=== PATIENT | male | born 1990 | race Caucasian/White ===

== ENCOUNTER 2018-12-15 14:34 | Inpatient (IN) | payer OTHER ==
[2018-12-15 17:23] VITALS: BMI 25.9
--- NOTE | 2018-12-15 18:00 | HP ---
COWS - Scale Resting Pulse: 1= [place] 81-100 Sweatin= Chills/Flushing Restless Observation: 3= Extraneous Movement Pupil Size: 0= Normal to Room Light Bone or Joint Aches: 2= Severe Diffuse Aches Runny Nose/ Eye Tearin= Nasal Congestion GI Upset > 30mins: 1= Stomach Cramp Tremor Observation: 1= Tremor [place], Not Seen Yawning Observation: 1= 1-2x During Session Anxiety or Irritability: 1=Feels Anxious/Irritable Goose Flesh Skin: 3=Piloerection COWS Score: 15 CIWA Score Nausea/Vomitin Muscle Tremors: 3 Anxiety: 2 Agitation: 2 Paroxysmal Sweats: 1-Minimal Palms Moist Orientation: 0-Oriented Tacttile Disturbances: 0-None Auditory Disturbances: 0-None Visual Disturbances: 0-None Headache: 2-Mild CIWA-Ar Total Score: 12 - Admission Criteria OASAS Guidelines: Admission for Medically Managed Detox: Requires at least one of the followin. CIWA greater than 12 2. Seizures within the past 24 hours 3. Delirium tremens within the past 24 hours 4. Hallucinations within the past 24 hours 5. Acute intervention needed for co occurring medical disorder 6. Acute intervention needed for co occurring psychiatric disorder 7. Severe withdrawal that cannot be handled at a lower level of care (continued vomiting, continued diarrhea, abnormal vital signs) requiring intravenous medication and/or fluids 8. Patient presents the following: CIWA greater than 12 Admission Criteria Met: Admission criteria met Admission ROS [facility] Chief Complaint: heroin and xanax detox 27 yo with no med problems. Says been using heroin for the last 6 years- IV. Introduced by coworkers to heroin. First time in detox, pt was in a methadone program, but missed several days and was placed on probation. Pt missed last 4 days of dosing. heroin- 1 bundle/day, in addition to occ methadone dose of 60mg/day, last use this morning xanax- 2 mg/day Utox- mop, fent, MTD, THC, leti- uses crack Allergies/Adverse Reactions: Allergies Allergy/AdvReac Type Severity Reaction Status Date / Time No Known Allergies Allergy Verified 12/15/18 17:10 - Ebola screening Have you traveled outside of the country in the last 21 days: No (N) Have you had contact with anyone from an Ebola affected area: No Do you have a fever: No Patient History - PPD History Documented Results: Negative w/o proof - Smoking Cessation Smoking history: Current every day smoker Have you smoked in the past 12 months: Yes Aproximately how many cigarettes per day: 20 Hx Chewing Tobacco Use: No Initiated information on smoking cessation: Yes 'Breaking Loose' booklet given: 12/15/18 - Substance & Tx. History Hx Substance Use: Yes Substance Use Type: None, Heroin, Opiates, Prescribed, Tranquilizers Hx Substance Use Treatment: Yes - Substances abused Heroin Substance route: Injection Frequency: Daily Amount used: 1 bundle Age of first use: 19 Date of last use: 12/15/18 Alprazolam (Xanax) Substance route: Oral Frequency: Daily Amount used: 1 of 2 mg Age of first use: 21 Date of last use: 12/14/18 Alcohol Substance route: Oral Frequency: 3-6 times per week Amount used: fifth of a bottle Age of first use: 17 Date of last use: 12/11/18 Benzodiazepine (Klonopin) Substance route: Oral Frequency: 3-6 times per week Amount used: 2 of 2 mg Age of first use: 21 Date of last use: 12/09/18 Crack Substance route: Smoking Frequency: Daily Amount used: 3 bags Age of first use: 21 Date of last use: 12/14/18 Other Other (specify): Fentanyl Substance route: Injection Frequency: Daily Amount used: 1 bundle Age of first use: 24 Date of last use: 12/15/18 Family Disease History - Family Disease History Family Disease History: Diabetes: Grandparent Admission Physical Exam [facility] - Vital Signs Vital Signs: Vital Signs - 24 hr 12/15/18 17:11 Temperature 97.0 F L Pulse Rate 66 Respiratory 16 Rate Blood Pressure 115/72 - Physical General Appearance: Yes: Within Normal Limits HEENTM: Yes: Within Normal Limits, EOMI Respiratory: Yes: Within Normal Limits, Lungs Clear Neck: Yes: Within Normal Limits, Supple Cardiology: Yes: Within Normal Limits, Regular Rhythm, S1, S2 Abdominal: Yes: Within Normal Limits, Normal Bowel Sounds Back: Yes: Within Normal Limits Musculoskeletal: Yes: Within Normal Limits Extremities: Yes: Within Normal Limits Neurological: Yes: Within Normal Limits Integumentary: Yes: Track Ramirez, Other (tattoos multiple) - Diagnostic (1) Opioid use disorder Current Visit: Yes Status: Acute (2) Methadone maintenance therapy patient Current Visit: Yes Status: Acute (3) Benzedrine use disorder, mild Current Visit: Yes Status: Acute (4) Cocaine use disorder Current Visit: Yes Status: Acute Breathalyzer - Breathalyzer Breathalyzer: 0 Urine Drug Screen - Test Device Lot number: [id number] Expiration date: 12/05/19 - Control Is test valid?: Yes - Results Drug screen NEGATIVE: No Urine drug screen results: THC-Marijuana, LETI-Cocaine, FEN-Fentanyl, MOP-Opiates , MTD-Methadone Inpatient Rehab Admission - Rehab Decision to Admit Inpatient rehab admission?: No
[2018-12-15] MEDS ORDERED: METHOCARBAMOL 500 MG TABLET PO PRN (18:06)
[2018-12-15] MEDS ORDERED: MAG HYDROX/AL HYDROX/SIMETH 30 ML UNIT-DOSE CUP PO PRN (18:06)
[2018-12-15] MEDS ORDERED: MAGNESIUM HYDROX 2400MG/30ML ORAL SUSPENSION 30 ML CUP PO PRN (18:06)
[2018-12-15] MEDS ORDERED: BISMUTH SUBSALICYLATE 524 MG/30 ML UD PO PRN (18:06)
[2018-12-15] MEDS ORDERED: MENTHOL/PHENOL 1 EACH UD MM PRN (18:06)
[2018-12-15] MEDS ORDERED: ONDANSETRON *ODT* 4 MG TABLET SL PRN (18:06)
[2018-12-15] MEDS ORDERED: ACETAMINOPHEN 325 MG TABLET (FP) PO PRN ×2 (18:06)
[2018-12-15] MEDS ORDERED: IBUPROFEN 400 MG TABLET (FP) PO PRN (18:06)
[2018-12-15] MEDS ORDERED: MAGNESIUM CITRATE 300 ML BOTTLE PO PRN (18:06)
[2018-12-15] MEDS ORDERED: cloNIDine HCL 0.1 MG TABLET PO PRN (18:08)
[2018-12-15] MEDS: diazePAM 5 MG TABLET PO PRN (19:06)
[2018-12-15] MEDS: NICOTINE POLACRILEX 2 MG GUM BUC PRN (19:48)
[2018-12-15] MEDS: diazePAM 5 MG TABLET PO SCH (22:11)
[2018-12-15] MEDS: THIAMINE HCL 100 MG TABLET (FP) PO SCH (22:11)
[2018-12-15] MEDS ORDERED: METHADONE HCL 10 MG TABLET (FOR DETOX USE ONLY) PO ONE (23:00)
[2018-12-15] MEDS: MELATONIN 5 MG TABLETS PO PRN (23:33)
[2018-12-15] MEDS: hydrOXYzine PAMOATE 25 MG CAPSULE (FP) PO PRN (23:33)
[2018-12-15 23:36] LABS: PH,URINE 5.5 (5.0-8.0); URINE APPEARANCE TURBID; URINE BILIRUBIN NEGATIVE (NEGATIVE); URINE COLOR DK YELLOW; URINE GLUCOSE (UA) NEGATIVE (NEGATIVE); URINE KETONE NEGATIVE (NEGATIVE); URINE LEUK ESTERASE NEGATIVE (NEGATIVE); URINE NITRITE NEGATIVE (NEGATIVE); URINE PROTEIN NEGATIVE (NEGATIVE); URINE UROBILINOGEN 0.2 mg/dL (0.2-1.0)
[2018-12-16] MEDS: diazePAM 5 MG TABLET PO SCH ×3 (06:54→22:19)
[2018-12-16] MEDS ORDERED: NICOTINE 14 MG/24 HOURS TOPICAL PATCH TD SCH (10:00)
[2018-12-16] MEDS ORDERED: METHADONE HCL 10 MG TABLET PO ONE (10:00)
[2018-12-16] MEDS ORDERED: METHADONE HCL 10 MG TABLET (FOR DETOX USE ONLY) PO SCH (10:00)
[2018-12-16 10:19] LABS: HEMATOCRIT 41.8 % (35.4-49); HEMOGLOBIN 13.8 GM/dL (11.7-16.9); MCH 26.2 pg (25.7-33.7); MCHC 33.1 g/dl (32.0-35.9); MEAN CELL VOLUME 79.2 fl (80-96); MEAN PLT VOLUME 10.3 fl (7.5-11.1); PLATELET COUNT 201 K/MM3 (134-434); RBC 5.27 M/mm3 (4.00-5.60); WHITE BLOOD COUNT 5.1 K/mm3 (4.0-10.0)
[2018-12-16 10:20] LABS: ALBUMIN 2.9 g/dl (3.4-5.0); ALK PHOS 112 U/L (45-117); ANION GAP 5 MMOL/L (8-16); BILIRUBIN,TOTAL 0.3 mg/dL (0.2-1); BLOOD UREA NITROGEN 9 mg/dL (7-18); CALCIUM 8.3 mg/dL (8.5-10.1); CHLORIDE 107 mmol/L (98-107); CO2 27 mmol/L (21-32); CREATININE 0.7 mg/dL (0.55-1.3); GLUCOSE,RANDOM 103 mg/dL (74-106); POTASSIUM 3.8 mmol/L (3.5-5.1); SGOT/AST 39 U/L (15-37); SGPT/ALT 79 U/L (13-61); SODIUM 139 mmol/L (136-145); TOT PROT 5.9 g/dl (6.4-8.2)
[2018-12-16] MEDS: PRENATAL VITAMINS W/ FOLIC ACID TABLET (FP) PO SCH (10:39)
[2018-12-16] MEDS: diazePAM 5 MG TABLET PO PRN (10:40)
--- NOTE | 2018-12-16 12:07 | PN ---
[facility] CIWA - CIWA Score Nausea/Vomitin-Mild Nausea/No Vomiting Muscle Tremors: 1-None Visible, but Agency Anxiety: 3 Agitation: 2 Paroxysmal Sweats: No Perspiration Orientation: 1-Uncertain about Date Tacttile Disturbances: 0-None Auditory Disturbances: 0-None Visual Disturbances: 0-None Headache: 1-Very Mild CIWA-Ar Total Score: 9 S Progress Note (SOAP) Subjective: patient is at the methadone maintenance program, last dose 12/10/18, patient had methadone 20 mg yesterday, tolerate well, and patient may resume 30 mg methadone po daily Objective: 12/16/18 12:11 Vital Signs Temperature 97.6 F 12/16/18 09:43 Pulse Rate 65 12/16/18 09:43 Respiratory Rate 18 12/16/18 09:43 Blood Pressure 103/59 L 12/16/18 09:43 O2 Sat by Pulse Oximetry (%) Laboratory Last Values WBC 5.1 K/mm3 (4.0-10.0) 12/16/18 07:00 RBC 5.27 M/mm3 (4.00-5.60) 12/16/18 07:00 Hgb 13.8 GM/dL (11.7-16.9) 12/16/18 07:00 Hct 41.8 % (35.4-49) 12/16/18 07:00 MCV 79.2 fl (80-96) L 12/16/18 07:00 MCH 26.2 pg (25.7-33.7) 12/16/18 07:00 MCHC 33.1 g/dl (32.0-35.9) 12/16/18 07:00 RDW 15.0 % (11.9-15.9) 12/16/18 07:00 Plt Count 201 K/MM3 (134-434) 12/16/18 07:00 MPV 10.3 fl (7.5-11.1) 12/16/18 07:00 Sodium 139 mmol/L (136-145) 12/16/18 07:00 Potassium 3.8 mmol/L (3.5-5.1) 12/16/18 07:00 Chloride 107 mmol/L (98-107) 12/16/18 07:00 Carbon Dioxide 27 mmol/L (21-32) 12/16/18 07:00 Anion Gap 5 MMOL/L (8-16) L 12/16/18 07:00 BUN 9 mg/dL (7-18) 12/16/18 07:00 Creatinine 0.7 mg/dL (0.55-1.3) 12/16/18 07:00 Creat Clearance w eGFR 136.32 (>60) 12/16/18 07:00 Random Glucose 103 mg/dL (74-106) 12/16/18 07:00 Calcium 8.3 mg/dL (8.5-10.1) L 12/16/18 07:00 Total Bilirubin 0.3 mg/dL (0.2-1) 12/16/18 07:00 AST 39 U/L (15-37) H 12/16/18 07:00 ALT 79 U/L (13-61) H 12/16/18 07:00 Alkaline Phosphatase 112 U/L (45-117) 12/16/18 07:00 Total Protein 5.9 g/dl (6.4-8.2) L 12/16/18 07:00 Albumin 2.9 g/dl (3.4-5.0) L 12/16/18 07:00 Urine Color Dk yellow 12/15/18 23:20 Urine Appearance Turbid 12/15/18 23:20 Urine pH 5.5 (5.0-8.0) 12/15/18 23:20 Ur Specific [place] 1.036 (1.010-1.035) H 12/15/18 23:20 Urine Protein Negative (NEGATIVE) 12/15/18 23:20 Urine Glucose (UA) Negative (NEGATIVE) 12/15/18 23:20 Urine Ketones Negative (NEGATIVE) 12/15/18 23:20 Urine Blood Negative (NEGATIVE) 12/15/18 23:20 Urine Nitrite Negative (NEGATIVE) 12/15/18 23:20 Urine Bilirubin Negative (NEGATIVE) 12/15/18 23:20 Urine Urobilinogen 0.2 mg/dL (0.2-1.0) 12/15/18 23:20 Ur Leukocyte Esterase Negative (NEGATIVE) 12/15/18 23:20 RPR Titer Nonreactive (NONREACTIVE) 12/16/18 07:00 HIV 1&2 Antibody Screen Negative 12/16/18 07:00 HIV P24 Antigen Negative 12/16/18 07:00 lab noted Assessment: 12/16/18 12:11 withdrawal sx Plan: continue detox
[2018-12-16] MEDS ORDERED: NICOTINE 21 MG/24 HOURS TOPICAL PATCH TD SCH (14:36)
[2018-12-16] MEDS: NICOTINE POLACRILEX 2 MG GUM BUC PRN ×2 (14:36→22:26)
[2018-12-16] MEDS: MELATONIN 5 MG TABLETS PO PRN (22:19)
[2018-12-16] MEDS: THIAMINE HCL 100 MG TABLET (FP) PO SCH (22:19)
[2018-12-17] MEDS: diazePAM 5 MG TABLET PO PRN ×2 (05:52→15:58)
[2018-12-17] MEDS ORDERED: METHADONE HCL 10 MG TABLET PO SCH (06:00)
[2018-12-17] MEDS: hydrOXYzine PAMOATE 25 MG CAPSULE (FP) PO PRN ×2 (08:23→18:45)
[2018-12-17] MEDS ORDERED: diazePAM 5 MG TABLET PO SCH (10:00)
[2018-12-17] MEDS: PRENATAL VITAMINS W/ FOLIC ACID TABLET (FP) PO SCH (10:51)
--- NOTE | 2018-12-17 16:28 | PN ---
[facility] CIWA - CIWA Score Nausea/Vomitin-No Nausea/No Vomiting Muscle Tremors: None Anxiety: 4-Mod. Anxious/Guarded Agitation: 2 Paroxysmal Sweats: 3 Orientation: 0-Oriented Tacttile Disturbances: 2-Mild Itch/Numbness/Burn Auditory Disturbances: 0-None Visual Disturbances: 0-None Headache: 0-None Present CIWA-Ar Total Score: 11 S COWS - Scale Resting Pulse: 1= [place] 81-100 Sweatin= Chills/Flushing Restless Observation: 1= Difficult to Sit Still Pupil Size: 0= Normal to Room Light Bone or Joint Aches: 0= None Runny Nose/ Eye Tearin= None GI Upset > 30mins: 0= None Tremor Observation of Outstretched Hands: 0= None Yawning Observation: 1= 1-2x During Session Anxiety or Irritability: 2=Irritable/Anxious Goose Flesh Skin: 3=Piloerection COWS Score: 9 [facility] Progress Note (SOAP) Subjective: Anxious, Hot / Cold Sensations, Sweating. Objective: PATIENT A & O X 3, OBSERVED AMBULATING ON UNIT. IN NO ACUTE DISTRESS. 12/17/18 16:26 Vital Signs Temperature 97.2 F L 12/17/18 13:36 Pulse Rate 87 12/17/18 13:36 Respiratory Rate 18 12/17/18 13:36 Blood Pressure 138/79 12/17/18 13:36 O2 Sat by Pulse Oximetry (%) Laboratory Tests 12/15/18 12/16/18 12/16/18 23:20 07:00 07:00 WBC 5.1 RBC 5.27 Hgb 13.8 Hct 41.8 MCV 79.2 L MCH 26.2 MCHC 33.1 RDW 15.0 Plt Count 201 MPV 10.3 Sodium 139 Potassium 3.8 Chloride 107 Carbon Dioxide 27 Anion Gap 5 L BUN 9 Creatinine 0.7 Creat Clearance w eGFR 136.32 Random Glucose 103 Calcium 8.3 L Total Bilirubin 0.3 AST 39 H ALT 79 H Alkaline Phosphatase 112 Total Protein 5.9 L Albumin 2.9 L Urine Color Dk yellow Urine Appearance Turbid Urine pH 5.5 Ur Specific [place] 1.036 H Urine Protein Negative Urine Glucose (UA) Negative Urine Ketones Negative Urine Blood Negative Urine Nitrite Negative Urine Bilirubin Negative Urine Urobilinogen 0.2 Ur Leukocyte Esterase Negative RPR Titer HIV 1&2 Antibody Screen HIV P24 Antigen 12/16/18 12/16/18 07:00 07:00 WBC RBC Hgb Hct MCV MCH MCHC RDW Plt Count MPV Sodium Potassium Chloride Carbon Dioxide Anion Gap BUN Creatinine Creat Clearance w eGFR Random Glucose Calcium Total Bilirubin AST ALT Alkaline Phosphatase Total Protein Albumin Urine Color Urine Appearance Urine pH Ur Specific [place] Urine Protein Urine Glucose (UA) Urine Ketones Urine Blood Urine Nitrite Urine Bilirubin Urine Urobilinogen Ur Leukocyte Esterase RPR Titer Nonreactive HIV 1&2 Antibody Screen Negative HIV P24 Antigen Negative LABS NOTED. Assessment: 12/17/18 16:26 WITHDRAWAL SYMPTOMS. Plan: CONTINUE DETOX. INCREASE DAILY PO FLUID INTAKE.
[2018-12-17 18:50] VITALS: BP 136/73; PULSE 82; TEMP 97.1
--- NOTE | 2018-12-17 19:21 | PN ---
S Progress Note Note: Patient scheduled for discharge in am and requesting to leave tonight. Wants to get to [facility] to ensure weekend medications. Patient states received overdose prevention training at [facility].
--- NOTE | 2018-12-17 20:46 | DS ---
[facility] Detox Discharge Summary Admission Date: 12/15/18 Discharge Date: 12/17/18 - History Present History: Sedative Dependence, MMTP Additional Comments: Patient admitted with opioid and anxiolytic withdrawal symptoms. Was on [facility] MMTP. - Physical Exam Results Vital Signs: Vital Signs Temperature 97.1 F L 12/17/18 18:00 Pulse Rate 82 12/17/18 18:00 Respiratory Rate 16 12/17/18 18:00 Blood Pressure 136/73 12/17/18 18:00 O2 Sat by Pulse Oximetry (%) Pertinent Admission Physical Exam Findings: Patient admitted with opioid and anxiolytic withdrawal symptoms. Patient placed on Librium. Laboratory Last Values WBC 5.1 K/mm3 (4.0-10.0) 12/16/18 07:00 RBC 5.27 M/mm3 (4.00-5.60) 12/16/18 07:00 Hgb 13.8 GM/dL (11.7-16.9) 12/16/18 07:00 Hct 41.8 % (35.4-49) 12/16/18 07:00 MCV 79.2 fl (80-96) L 12/16/18 07:00 MCH 26.2 pg (25.7-33.7) 12/16/18 07:00 MCHC 33.1 g/dl (32.0-35.9) 12/16/18 07:00 RDW 15.0 % (11.9-15.9) 12/16/18 07:00 Plt Count 201 K/MM3 (134-434) 12/16/18 07:00 MPV 10.3 fl (7.5-11.1) 12/16/18 07:00 Sodium 139 mmol/L (136-145) 12/16/18 07:00 Potassium 3.8 mmol/L (3.5-5.1) 12/16/18 07:00 Chloride 107 mmol/L (98-107) 12/16/18 07:00 Carbon Dioxide 27 mmol/L (21-32) 12/16/18 07:00 Anion Gap 5 MMOL/L (8-16) L 12/16/18 07:00 BUN 9 mg/dL (7-18) 12/16/18 07:00 Creatinine 0.7 mg/dL (0.55-1.3) 12/16/18 07:00 Creat Clearance w eGFR 136.32 (>60) 12/16/18 07:00 Random Glucose 103 mg/dL (74-106) 12/16/18 07:00 Calcium 8.3 mg/dL (8.5-10.1) L 12/16/18 07:00 Total Bilirubin 0.3 mg/dL (0.2-1) 12/16/18 07:00 AST 39 U/L (15-37) H 12/16/18 07:00 ALT 79 U/L (13-61) H 12/16/18 07:00 Alkaline Phosphatase 112 U/L (45-117) 12/16/18 07:00 Total Protein 5.9 g/dl (6.4-8.2) L 12/16/18 07:00 Albumin 2.9 g/dl (3.4-5.0) L 12/16/18 07:00 Urine Color Dk yellow 12/15/18 23:20 Urine Appearance Turbid 12/15/18 23:20 Urine pH 5.5 (5.0-8.0) 12/15/18 23:20 Ur Specific [place] 1.036 (1.010-1.035) H 12/15/18 23:20 Urine Protein Negative (NEGATIVE) 12/15/18 23:20 Urine Glucose (UA) Negative (NEGATIVE) 12/15/18 23:20 Urine Ketones Negative (NEGATIVE) 12/15/18 23:20 Urine Blood Negative (NEGATIVE) 12/15/18 23:20 Urine Nitrite Negative (NEGATIVE) 12/15/18 23:20 Urine Bilirubin Negative (NEGATIVE) 12/15/18 23:20 Urine Urobilinogen 0.2 mg/dL (0.2-1.0) 12/15/18 23:20 Ur Leukocyte Esterase Negative (NEGATIVE) 12/15/18 23:20 RPR Titer Nonreactive (NONREACTIVE) 12/16/18 07:00 HIV 1&2 Antibody Screen Negative 12/16/18 07:00 HIV P24 Antigen Negative 12/16/18 07:00 Labs reviewed. - Treatment Hospital Course: Detox Protocol Followed, Detoxed Safely, Responded well ( Patient admitted w/ opioid and anxiolytic withdrawal symptoms. Stabilized on methadone and will be reinstated on [facility] program.), Discharged Condition Good - Medication Discharge Medications: Ambulatory Orders Methadone [Dolophine -] 30 mg PO DAILY 12/15/18 Naloxone HCl [Narcan] 4 mg NS PRN #2 spray 12/18/18 - Diagnosis (1) Methadone maintenance therapy patient Status: Chronic (2) Opioid use disorder Status: Chronic (3) Sedative, hypnotic or anxiolytic dependence with withdrawal, uncomplicated Status: Acute - AMA Did Patient Leave Against Medical Advice: No
[2018-12-18] MEDS ORDERED: diazePAM 5 MG TABLET PO SCH (06:00)
== END 2018-12-17 20:36 | disposition home or self-care (01) | DRG 773 ==
LOC: YASAS 14:34 → Y3N 18:22
PROVIDERS: ADMIT Surgery; ATTEND Surgery
PROC: HZ2ZZZZ Detoxification Services for Substance Abuse Treatment (ICD-10-PCS; principal; 2018-12-15)
DX: F11.23 Opioid dependence with withdrawal (principal); F13.230 Sedative, hypnotic or anxiolytic dependence with withdrawal, uncomplicated; F17.210 Nicotine dependence, cigarettes, uncomplicated
CPT/HCPCS: 36415; 80053; 81003; 85027; 86593; 87389; J0735